=== PATIENT | female | born 1990 | race Asian ===

== ENCOUNTER 2017-10-09 09:36 | Inpatient (IN) | payer OTHER, SELFPAY ==
[2017-10-09] MEDS: LACTATED RINGERS 1,000 ML 500 ML IV (12:00)
--- NOTE | 2017-10-09 13:07 | P.HPOB_ITS ---
OB HPI Date/Time Date of admission: 10/09/17 Date Patient Seen: 10/09/17 Time Patient Seen: 12:55 History of Present Illness Chief complaint: EVALUATION OF LABOR : 1 Para: 0 Estimated Date of Delivery: 10/01/17 Estimated Gestational Age (weeks): 41w 1d Narrative: TED CROOK is a 27 year old female under the care of Dr. Fountain at [facility] but Dr. Fountain unavailable and patient came here for delivery. Patient had began having contractions. While here she had spontaneous rupture of membranes with clear fluid. Patient denies any problems with the . Indications Other reason(s) for admission: Active labor with spontaneous rupture membranes History of Present care: initiated at week # (8wk) Dating criteria: LMP confirmed by 2nd trimester US Ultrasounds: normal mid trimester US Abnormal ultrasound findings: Patient states normal ultrasound although we do not have those records Obstetrical complications: none Medical complications: none Preadmission Labs Blood type: B (+) positive -: Antibody screen: negative, GBS status: negative, HBsAG: negative, HIV: negative and RPR/VDLR: negative -: Chlamydia screen: not detected and Gonorrhea screen: not detected -: Varicella: immune HCAB: negative 1 hr GTT: 140 Meds Generic Name Dose Route Start Last Admin Trade Name Freq PRN Reason Stop Dose Admin Calcium Carbonate 500 mg 10/09/17 12:43 Tums PO Q2HR PRN Dyspepsia Fentanyl 100 mcg 10/09/17 12:43 Sublimaze IV Q1H PRN Severe Pain Lactated Ringer's 1,000 mls @ 100 mls/hr 10/09/17 12:45 Lactated Ringers IV CONT TI Ondansetron HCl 4 mg 10/09/17 12:43 Zofran IV Q4HR PRN Nausea And Vomiting Review of Systems Review of Systems All systems reviewed & are unremarkable except as noted in HPI and below Exam Narrative Exam Narrative: HEENT exam within normal limits. Lungs are clear to auscultation and percussion. No thyromegaly. Heart is regular, rate and rhythm , no S3-S4 or murmurs. Abdomen is gravid, with moderate palpation contractions. Ultrasound confirms vertex fetus. Manual OB Exam: dilated 2, effaced 75% and station -2 Uterus Location (Fundal Height): 37 Presentation: vertex Estimated Weight (lbs): 7 Amniotic Fluid: clear Neuro DTR's: Rt Patellar: 0 and Lt Patellar: 0 Extrem Right lower extremity: normal to inspection Left lower extremity: normal to inspection Assessment and Plan (1) Active labor at term: Current visit: Yes Status: Acute (2) 41 weeks gestation of : Current visit: Yes Status: Acute Forty-one week gestation in active labor with spontaneous rupture med. Fentanyl and epidural when patient requests. Anticipate vaginal delivery.
[2017-10-09 13:29] LABS: Add Manual Diff / Slide Review NO; Basophils Percent Auto 0.4 % (0-2); Eosinophils Percent Auto 0.4 % (2-4); Hematocrit 39.5 % (36-46); Hemoglobin 13.7 g/dL (12.0-16.0); Lymphocytes Percent Auto 8.2 % (25-40); Mean Corpuscular HGB Conc 34.6 % (30-36); Mean Corpuscular Hemoglobin 32.3 PG (26-34); Mean Corpuscular Volume 93.4 fL (80-100); Monocytes Percent Auto 10.5 % (3-14); Neutrophils Absolute Auto 14200 /uL (3000-5900); Neutrophils Percent Auto 80.5 % (50-75); Platelet Count 174 X10^3/uL (150-400); Red Blood Cell Count 4.23 X10^6/uL (4.0-5.2); Red Cell Distribution Width 13.3 % (11.6-14.8); White Blood Cell Count 17.6 X10^3/uL (4.5-11.0)
--- NOTE | 2017-10-09 20:24 | P.PNOB_ITS ---
Date/Time Date Patient Seen: 10/09/17 Time Patient Seen: 20:17 Pain Control Pain control: epidural Pelvic Exam Dilation (cm): 9 Effacement (%): 100 station: 0 Amniotic membrane status: Ruptured Comments: Fore bag ruptured, somewhat malodorous amniotic fluid Contractions Contractions on admission: regular Contraction frequency (min): 3 Contraction duration (min): 1 Contraction pattern: Regular Contraction intensity: Moderate Status status: Category l Heart Rate Baseline: 160 Monitor Accelerations: Present Monitor Decelerations: Absent Monitor Variability: Moderate Assessment and Plan Assessment: active labor Plan: other Comments: Patient with temperature now 100.3, pulse of 130, increased heart rate baseline, malodorous amniotic fluid will treat with Tylenol and Ancef for possible early chorioamnionitis
[2017-10-09 20:35] VITALS: TEMP 37.9
[2017-10-09] MEDS: ACETAMINOPHEN 325 MG TABLET 650 MG PO (20:35)
[2017-10-09] MEDS: CEFAZOLIN 2 GM/100 ML FROZ.PIGGY IV (20:45)
[2017-10-09] MEDS: OXYTOCIN 10 UNIT/ML VIAL IM (23:55)
[2017-10-10 02:27] VITALS: TEMP 37.2
[2017-10-10] MEDS: IBUPROFEN 600 MG TABLET PO ×3 (02:27→23:43)
[2017-10-10 04:14] VITALS: TEMP 37
[2017-10-10] MEDS: HYDROCODONE/ACET 5/325 TABLET 2 TAB PO ×2 (04:14→14:44)
[2017-10-10] MEDS: DERMOPLAST SPRAY 20% 60 ML 1 SPRAY TOP (07:30)
[2017-10-10] MEDS: DOCUSATE 250 MG CAPSULE PO (09:15)
--- NOTE | 2017-10-10 11:50 | P.PNOB_ITS ---
Subjective - OB Patient comments: no complaints and incisional pain baby status: doing well [place] feeding status: exclusively breast feeding Date Patient Seen: 10/10/17 Time Patient Seen: 11:48 Exam Vital Signs (past 8 hours): Vital Signs - 8 hr 3 10/10/17 04:14 Temperature 98.6 F Temperature 98.6 F Narrative Exam Narrative: Patient denies any signs or symptoms of preeclampsia. She is urinating and ambulatory. She has incisional pain but otherwise is doing well. Abdomen is soft, nontender. Uterus is firm, at U, nontender. Extremities with out edema, nontender. Objective Labs Result Diagrams: 10/09/17 12:00 Labs: Laboratory Results - last 24 hr 10/09/17 10/09/17 12:00 12:00 WBC 17.6 H RBC 4.23 Hgb 13.7 Hct 39.5 MCV 93.4 MCH 32.3 MCHC 34.6 RDW 13.3 Plt Count 174 Neut % (Auto) 80.5 H Lymph % (Auto) 8.2 L Rains % (Auto) 10.5 Eos % (Auto) 0.4 L Baso % (Auto) 0.4 Neut # (Auto) 34281 H Blood Type B Positive Antibody Screen Negative Assessment & Plan (1) Active labor at term: Status: Acute Current Visit: Yes (2) 41 weeks gestation of : Status: Acute Current Visit: Yes (3) Vaginal delivery: Problem details: Routine post vaginal delivery care. Probable discharge tomorrow if stable. Status: Acute Current Visit: Yes Time Spent With Patient Total time spent is greater than 50% in coordination of care (as documented) at patient's floor/unit and/or counseling patient: less than 15 minutes
[2017-10-10] MEDS: PRENATAL VIT,CALC/IRON/FOLIC 1 TABLET 1 TAB PO (14:46)
[2017-10-10 23:43] VITALS: TEMP 36.9
[2017-10-11 06:56] LABS: Hematocrit 32.4 % (36-46); Hemoglobin 11.1 g/dL (12.0-16.0)
[2017-10-11] MEDS: IBUPROFEN 600 MG TABLET PO (08:28)
--- NOTE | 2017-10-11 11:03 | PM.OBDS.1 ---
Discharge Providers Date of admission: 10/10/17 15:01 Discharge provider: Janette Bangura MD Summary Date Patient Seen: 10/11/17 Time Patient Seen: 11:04 Peripartum Data Infant Delivery Method: Natural Vaginal Laceration description: Perineal - 2nd Degree Procedures: Epidural catheter, IV antibiotics Discharge Diagnosis (1) Chorioamnionitis, delivered, current hospitalization: Start Date: 10/09/17 Start Time: 21:00 Status: Acute Problem Details: Patient developed a fever and had foul-smelling amniotic fluid with increasing heart rate Status at Discharge Functional status at discharge: independent ambulation Overall status at discharge: patient is back to baseline Time Spent with Patient Total time spent providing and/or coordinating discharge services: Less than 30 minutes Objective Labs Result Diagrams: 10/11/17 06:35 Labs: Laboratory Results - last 24 hr 10/11/17 06:35 Hgb 11.1 L Hct 32.4 L Discharge Plan Discharge Plan Patient Disposition: Home, Self-Care Discharge Med Rec/Prescriptions Prescriptions: New ibuprofen 600 mg Tablet 600 mg PO Q6HR PRN (Reason: As Needed For Fever/Mild Pain) Qty: 30 RF: 0 Continue [id number] fumarate-FA [] 28-800 mg-mcg Tablet 1 % (w/w) PO DAILY RF: 0 Follow up/Referrals: Janette Bangura MD [Physician] - (Four weeks) Provider Discharge Instructions Diet: Diet as Tolerated Activity: Activity as tolerated and Do not place anything in the vagina for 6 weeks Cold/Heat Therapy: Apply ice as needed for comfort Wound Care Report to your healthcare provider any signs of infection, such as:: chills, fever and increased pain Discharge Data Attending Provider: Janette Bangura Admit Date/Time: 10/10/17 15:01
[2017-10-11 11:17] VITALS: BP 107/73; PULSE 91; RESP 16; TEMP 36.8
--- NOTE | 2017-12-25 04:08 | PM.OBPRVD ---
Events: Foul Smelling Amniotic Fluid Delivery date: 10/09/14 Intrapartal events: Febrile and Chorioamnionitis Induction method: none Delivery monitor: external FHT and external uterine Route of delivery: Laceration description: Perineal - 2nd Degree Delivery repair: vicryl Estimated blood loss (mL): 250 Anesthesia type: Epidural Narrative: Patient arrived on Labor and delivery in active labor. She received an epidural for pain control. heart tones remained reassuring throughout labor. She did have possible early signs of chorioamnionitis with fever and foul-smelling amniotic fluid so was given IV antibiotics. She delivered spontaneously over an intact perineum a viable male infant. The infant was placed on maternal abdomen and after the cord stopped pulsating the cord was clamped cut and cord bloods obtained. Patient had a second-degree perineal tear that was repaired with 3 0 chromic in the usual 2 layer fashion. There are no cervical or vaginal tears. The placenta delivered spontaneously intact with 3 vessels. The male infant weighed 8 lb 12 oz, 3969 g with Apgars of 9 and 9. Estimated blood loss 250 cc. Both mother doing well. First stage of labor 15 hr 50 min, 2nd stage of labor 2 hr 29 min, 3rd stage of labor 5 min Baby 1: gender: Male Presentation: vertex Placenta delivery description: Spontaneous cord vessel description: 3 Vessels score (1 min): 9 score (5 min): 9 Plan for aftercare: Routine post care, watch for evidence of infection.
== END 2017-10-11 14:52 | disposition home or self-care (01) | DRG 775 ==
PROVIDERS: Admitting Provider Specialist; Visit Provider Specialist
DX: O41.1230 Chorioamnionitis, third trimester, not applicable or unspecified (principal); Z3A.41 41 weeks gestation of pregnancy; Z37.0 Single live birth; O70.1 Second degree perineal laceration during delivery; O77.0 Labor and delivery complicated by meconium in amniotic fluid; Z34.03 Encounter for supervision of normal first pregnancy, third trimester
CPT/HCPCS: 01967; 36415; 59050; 59409; 85014; 85018; 85025; 86850; 86900; 86901; 99058; 99222; 99238; G0378; G0379; J0690; J2590; J3010

== ENCOUNTER 2018-01-19 16:08 | Emergency (ER) | payer OTHER, SELFPAY ==
[2018-01-19 16:12] VITALS: BP 113/78; PULSE 63; RESP 14; TEMP 36.3; O2SAT 97; BMI 24.4
--- NOTE | 2018-01-19 16:18 | ED_ITS ---
HPI - Dizziness <GERMAN Ram - Last Filed: 01/19/18 21:52> General Chief Complaint: Dizziness Stated Complaint: DIZZY, HEADACHE Time Seen by Provider: 01/19/18 16:17 Source: patient Mode of arrival: ambulatory Limitations: no limitations History of Present Illness HPI Narrative: 19-year-old female here for complaint of having headache for the last couple of days. She reports the headache is to the left side of her head. She also reports that she has had few episodes of dizziness during the same timeframe. She denies any shortness of breath. No chest pain. No fevers or chills. She denies any stressors or relievers of her headache. No nausea or vomiting. She reports that she has had positive p.o. intake and has been drinking fluids well. No abdominal pain. No other concerns or complaints. Related Data Home Medications Medication Instructions Recorded Confirmed PNV cmb#95-ferrous fumarate-FA 1 tab PO QPM 01/19/18 01/19/18 [] norethindrone (contraceptive) 1 tab PO QPM 01/19/18 01/19/18 [Sommer-BE] Allergies Allergy/AdvReac Type Severity Reaction Status Date / Time No Known Drug Allergies Allergy Verified 01/19/18 16:15 Review of Systems <GERMAN Ram - Last Filed: 01/19/18 21:52> Constitutional Denies chills, Denies fever(s), Reports headache(s), Denies lethargy and Denies weakness Eyes Denies change in vision, Denies eye discharge, Denies irritation and Denies loss of vision ENT Ears, Nose, Mouth, and Throat: Denies change in voice, Reports dizziness, Reports headache(s), Denies neck pain and Denies sore throat Cardiovascular Denies chest pain, Denies irregular heart rhythm, Denies lightheadedness, Denies palpitations, Denies dyspnea, Denies dyspnea on exertion and Denies orthopnea Respiratory Denies cough, Denies dyspnea, Denies dyspnea on exertion and Denies wheezing Gastrointestinal Gastrointestinal: Denies abdominal pain, Denies change in bowel habits, Denies diarrhea, Denies nausea and Denies vomiting Genitourinary Denies hematuria, Denies flank pain, Denies urinary incontinence and Denies urinary urgency Musculoskeletal Denies neck pain Integumentary/Breasts Denies pruritus, Denies erythema, Denies rash and Denies wounds Neurologic Denies confusion, Reports dizziness, Reports headache(s), Denies loss of vision and Denies weakness Psychiatric Denies anxiety, Denies confusion, Denies depression, Denies homicidal ideation and Denies suicidal ideation Endocrine Denies palpitations Hematologic/Lymphatic Denies easy bruising Allergic/Immunologic Denies wheezing Exam <GERMAN Ram - Last Filed: 01/19/18 21:52> Initial Vital Signs Initial Vital Signs: Vital Signs Temperature 97.4 F L 01/19/18 16:12 Pulse Rate 63 01/19/18 16:12 Respiratory Rate 14 01/19/18 16:12 Blood Pressure 113/78 01/19/18 16:12 Pulse Oximetry 97 01/19/18 16:12 Const General: cooperative and well developed Nutritional Appearance: well nourished Orientation: alert, awake, oriented x3 and not confused HENDE Mouth: oral mucosae normal, oropharynx normal and moist mucous membranes Eyes Conjunctivae: conjunctivae normal Sclera: sclerae normal Pupils: PERRL EOM: EOM intact bilaterally Resp Effort & Inspection: normal respiratory effort, able to speak in complete sentences, no respiratory distress and no use of accessory muscles Auscultation: clear to auscultation bilaterally, no rales, no rhonchi and no wheezes Cardio Rate: regular rate Rhythm: regular rhythm Heart Sounds: no click, no gallops, no murmurs and no rubs GI Inspection: non-distended Palpation: soft, no hepatosplenomegaly, No guarding, No pulsatile mass and No tender Auscultation: normal bowel sounds Skin General: no rashes or lesions noted, No jaundice and No petechiae Neuro General: alert, awake, oriented x3, gait normal and no focal motor deficits Speech: speech normal <Rosales Oneill DO - Last Filed: 01/20/18 13:09> Initial Vital Signs Initial Vital Signs: Vital Signs Temperature 97.4 F L 01/19/18 16:12 Pulse Rate 63 01/19/18 16:12 Respiratory Rate 14 01/19/18 16:12 Blood Pressure 113/78 01/19/18 16:12 Pulse Oximetry 97 01/19/18 16:12 Course <GERMAN Ram - Last Filed: 01/19/18 21:52> Orders Ordered: Discontinued Medications Diphenhydramine HCl (Benadryl) 25 mg IV NOW ONE Stop: 01/19/18 16:45 Last Admin: 01/19/18 17:23 Dose: 25 mg Sodium Chloride (Normal Saline 0.9%) 1,000 mls @ 1,000 mls/hr IV BOLUS PRN PRN Reason: Fluid replacement Last Infusion: 01/19/18 18:32 Dose: 1,000 mls/hr Admin: 01/19/18 17:25 Dose: 1,000 mls/hr Ketorolac Tromethamine (Toradol) 30 mg IV NOW ONE Stop: 01/19/18 16:45 Last Admin: 01/19/18 17:23 Dose: 30 mg Prochlorperazine (Compazine) 10 mg IV NOW ONE Stop: 01/19/18 16:45 Last Admin: 01/19/18 17:24 Dose: 10 mg Vital Signs - 8 hr 01/19/18 16:12 01/19/18 17:24 01/19/18 17:35 Temperature 97.4 F L Pulse Rate 63 62 61 Respiratory Rate 14 14 Blood Pressure 113/78 109/78 Blood Pressure [Left Arm] 104/80 Pulse Oximetry 97 100 01/19/18 18:41 Temperature Pulse Rate 60 Respiratory Rate 16 Blood Pressure Blood Pressure [Left Arm] 110/70 Pulse Oximetry 100 <Rosales Oneill DO - Last Filed: 01/20/18 13:09> Orders Ordered: Discontinued Medications Diphenhydramine HCl (Benadryl) 25 mg IV NOW ONE Stop: 01/19/18 16:45 Last Admin: 01/19/18 17:23 Dose: 25 mg Sodium Chloride (Normal Saline 0.9%) 1,000 mls @ 1,000 mls/hr IV BOLUS PRN PRN Reason: Fluid replacement Last Infusion: 01/19/18 18:32 Dose: 1,000 mls/hr Admin: 01/19/18 17:25 Dose: 1,000 mls/hr Ketorolac Tromethamine (Toradol) 30 mg IV NOW ONE Stop: 01/19/18 16:45 Last Admin: 01/19/18 17:23 Dose: 30 mg Prochlorperazine (Compazine) 10 mg IV NOW ONE Stop: 01/19/18 16:45 Last Admin: 01/19/18 17:24 Dose: 10 mg Vital Signs - 8 hr 01/19/18 16:12 01/19/18 17:24 01/19/18 17:35 Temperature 97.4 F L Pulse Rate 63 62 61 Respiratory Rate 14 14 Blood Pressure 113/78 109/78 Blood Pressure [Left Arm] 104/80 Pulse Oximetry 97 100 01/19/18 18:41 Temperature Pulse Rate 60 Respiratory Rate 16 Blood Pressure Blood Pressure [Left Arm] 110/70 Pulse Oximetry 100 MDM - Dizziness <GERMAN Ram - Last Filed: 01/19/18 21:52> Lab Data Result diagrams: 01/19/18 17:13 01/19/18 17:13 Lab Results 01/19/18 01/19/18 01/19/18 Range/Units 17:13 17:13 18:00 WBC 5.9 (4.5-11.0) X10^3/uL RBC 4.66 (4.0-5.2) X10^6/uL Hgb 14.5 (12.0-16.0) g/dL Hct 42.2 (36-46) % MCV 90.6 (80-100) fL MCH 31.0 (26-34) PG MCHC 34.2 (30-36) % RDW 12.2 (11.6-14.8) % Plt Count 248 (150-400) X10^3/uL Neut % (Auto) 53.5 (50-75) % Lymph % (Auto) 30.7 (25-40) % [place] % (Auto) 13.0 (3-14) % Eos % (Auto) 2.1 (2-4) % Baso % (Auto) 0.7 (0-2) % Neut # (Auto) 3200 (1406-8208) /uL Sodium 141 (137-145) mmol/L Potassium 3.8 (3.4-5.1) mmol/L Chloride 101 (98-107) mmol/L Carbon Dioxide 28 (22-32) mmol/L BUN 18 H (7-17) mg/dL Creatinine 0.90 (0.52-1.04) mg/dL Estimated GFR > 60.0 (>60) mL/min BUN/Creatinine Ratio 20.0 (6-22) Glucose 83 (70-100) mg/dL Calcium 10.0 (8.4-10.2) mg/dL Total Bilirubin 0.7 (0.2-1.3) mg/dL AST 20 (14-36) IU/L ALT 24 (9-52) IU/L Alkaline Phosphatase 87 (38-126) U/L Troponin I < 0.012 (0.01-0.034) ng/mL Total Protein 8.9 H (6.3-8.2) g/dL Albumin 5.1 H (3.5-5.0) g/dL Globulin 3.8 (1.7-4.1) g/dL Albumin/Globulin Ratio 1.3 (1.0-2.8) Urine RBC None seen (0-5/HPF) Urine WBC 5-10/hpf H (0-5/HPF) Ur Squamous Epith Cells 0-1 /hpf Urine Bacteria None seen (None) Ur Culture Indicated? Specimen cultured Micro UA Comment Not Reportable Imaging Data Chest x-ray: Radiologist's impression: PROCEDURE: XR CHEST 1V INDICATIONS: Headache with dizziness TECHNIQUE: One view of the chest was acquired. COMPARISON: None. FINDINGS: Surgical changes and devices: None. Lungs and pleura: No pleural effusions or pneumothorax. Lungs are clear. Mediastinum: Mediastinal contours appear normal. Heart size is normal. Bones and chest wall: No suspicious bony lesions. Overlying soft tissues appear unremarkable. IMPRESSION: No acute cardiopulmonary findings. Dictated by: Stephanie Gutierrez M.D. on 01/19/2018 at 17:32 Approved by: Stephanie Gutierrez M.D. on 01/19/2018 at 17:33 CT scan - head: Radiologist's impression: PROCEDURE: CT HEAD/BRAIN WO CON INDICATIONS: Headache with dizziness since this morning TECHNIQUE: Noncontrast 4.5 mm thick angled axial sections acquired from the foramen magnum to the vertex, with coronal and sagittal reformats. For radiation dose reduction, the following was used: automated exposure control, adjustment of mA and/or kV according to patient size. COMPARISON: None. FINDINGS: Image quality: Excellent. CSF spaces: Basal cisterns are patent. No extra-axial fluid collections. Ventricles are normal in size and shape. Brain: No midline shift. No intracranial masses or hemorrhage. Garcia-white matter interface is normal. Skull and face: Calvarium and visualized facial bones are intact, without suspicious lesions. Sinuses: Visualized sinuses and mastoids are clear. IMPRESSION: Unremarkable head CT. No acute intracranial hemorrhage or ischemia. Dictated by: Adarsh Sams M.D. on 01/19/2018 at 15:59 Approved by: Adarsh Sams M.D. on 01/19/2018 at 16:00 ECG Data Interpretation: EKG shows normal sinus rhythm with no ST elevation or depression. No ectopy. Ventricular rate of 92. Pr interval 117. QRS duration of 82. QT of 318. MDM Narrative Medical decision making narrative: CBC and Chem panel were obtained were unremarkable. Cardiac enzymes were obtained were negative. CT of the head was obtained was negative for any acute findings. Chest x-ray was negative for any acute findings. EKG shows normal sinus rhythm with no ST elevation or depression. No ectopy. She was given a Benadryl Compazine and Toradol in the emergency room along with fluids which read solved her headache. She states she feels much better after treatment and desires to go home. Urinalysis was negative for . Urinalysis did show WBC however patient is not having any signs of urinary tract infection. [id number] Tylenol or ibuprofen as needed for any discomfort. Follow up with primary care for the next few days for re-evaluation. For any worsening symptoms return emergency room. <Rosales Oneill, - Last Filed: 01/20/18 13:09> Lab Data Lab Results 01/19/18 01/19/18 01/19/18 Range/Units 17:13 17:13 18:00 WBC 5.9 (4.5-11.0) X10^3/uL RBC 4.66 (4.0-5.2) X10^6/uL Hgb 14.5 (12.0-16.0) g/dL Hct 42.2 (36-46) % MCV 90.6 (80-100) fL MCH 31.0 (26-34) PG MCHC 34.2 (30-36) % RDW 12.2 (11.6-14.8) % Plt Count 248 (150-400) X10^3/uL Neut % (Auto) 53.5 (50-75) % Lymph % (Auto) 30.7 (25-40) % [place] % (Auto) 13.0 (3-14) % Eos % (Auto) 2.1 (2-4) % Baso % (Auto) 0.7 (0-2) % Neut # (Auto) 3200 (4535-2918) /uL Sodium 141 (137-145) mmol/L Potassium 3.8 (3.4-5.1) mmol/L Chloride 101 (98-107) mmol/L Carbon Dioxide 28 (22-32) mmol/L BUN 18 H (7-17) mg/dL Creatinine 0.90 (0.52-1.04) mg/dL Estimated GFR > 60.0 (>60) mL/min BUN/Creatinine Ratio 20.0 (6-22) Glucose 83 (70-100) mg/dL Calcium 10.0 (8.4-10.2) mg/dL Total Bilirubin 0.7 (0.2-1.3) mg/dL AST 20 (14-36) IU/L ALT 24 (9-52) IU/L Alkaline Phosphatase 87 (38-126) U/L Troponin I < 0.012 (0.01-0.034) ng/mL Total Protein 8.9 H (6.3-8.2) g/dL Albumin 5.1 H (3.5-5.0) g/dL Globulin 3.8 (1.7-4.1) g/dL Albumin/Globulin Ratio 1.3 (1.0-2.8) Urine RBC None seen (0-5/HPF) Urine WBC 5-10/hpf H (0-5/HPF) Ur Squamous Epith Cells 0-1 /hpf Urine Bacteria None seen (None) Ur Culture Indicated? Specimen cultured Micro UA Comment Not Reportable Discharge Plan Departure Patient Disposition: Home Clinical Impression: Headache Discharge Date/Time: 01/19/18 18:50 Interventions: ED Discharge Assessment Last Done: 01/19/18 18:50 Instructions: DI for Headache Activity Restrictions/Additional Instructions: Laboratory results today were unremarkable. Imaging today was also unremarkable. Signs and symptoms presents as acute headache that was resolved with medications and fluids. Use [id number] Tylenol Motrin as needed for any discomfort. Plenty of fluids. Follow up via primary care per the next few days for re-evaluation. For any worsening symptoms return emergency room. Prescriptions: No Action norethindrone (contraceptive) [Sommer-BE] 0.35 mg tablet 1 tab PO QPM RF: 0 PNV cmb#95-ferrous fumarate-FA [] 28 mg iron- 800 mcg tablet 1 tab PO QPM RF: 0 Referrals: [facility] [Provider Group] <Rosales Oneill DO - Last Filed: 01/20/18 13:09> Cosign ED Attending Donnaature Attestation: I was immediately available in the department for consultation. Documentation has been reviewed. I agree with assessment and plan.
--- NOTE | 2018-01-19 16:44 | DI.RAD.S_ITS ---
PROCEDURE: XR CHEST 1V INDICATIONS: Headache with dizziness TECHNIQUE: One view of the chest was acquired. COMPARISON: None. FINDINGS: Surgical changes and devices: None. Lungs and pleura: No pleural effusions or pneumothorax. Lungs are clear. Mediastinum: Mediastinal contours appear normal. Heart size is normal. Bones and chest wall: No suspicious bony lesions. Overlying soft tissues appear unremarkable. IMPRESSION: No acute cardiopulmonary findings. Dictated by: Stephanie Gutierrez M.D. on 01/19/2018 at 17:32 Approved by: Stephanie Gutierrez M.D. on 01/19/2018 at 17:33
--- NOTE | 2018-01-19 16:45 | DI.CT.S_ITS ---
PROCEDURE: CT HEAD/BRAIN WO CON INDICATIONS: Headache with dizziness since this morning TECHNIQUE: Noncontrast 4.5 mm thick angled axial sections acquired from the foramen magnum to the vertex, with coronal and sagittal reformats. For radiation dose reduction, the following was used: automated exposure control, adjustment of mA and/or kV according to patient size. COMPARISON: None. FINDINGS: Image quality: Excellent. CSF spaces: Basal cisterns are patent. No extra-axial fluid collections. Ventricles are normal in size and shape. Brain: No midline shift. No intracranial masses or hemorrhage. Garcia-white matter interface is normal. Skull and face: Calvarium and visualized facial bones are intact, without suspicious lesions. Sinuses: Visualized sinuses and mastoids are clear. IMPRESSION: Unremarkable head CT. No acute intracranial hemorrhage or ischemia. Dictated by: Adarsh Sams M.D. on 01/19/2018 at 15:59 Approved by: Adarsh Sams M.D. on 01/19/2018 at 16:00
[2018-01-19 17:21] LABS: Add Manual Diff / Slide Review NO; Basophils Percent Auto 0.7 % (0-2); Eosinophils Percent Auto 2.1 % (2-4); Hematocrit 42.2 % (36-46); Hemoglobin 14.5 g/dL (12.0-16.0); Lymphocytes Percent Auto 30.7 % (25-40); Mean Corpuscular HGB Conc 34.2 % (30-36); Mean Corpuscular Volume 90.6 fL (80-100); Neutrophils Absolute Auto 3200 /uL (3000-5900); Neutrophils Percent Auto 53.5 % (50-75); Platelet Count 248 X10^3/uL (150-400); Red Blood Cell Count 4.66 X10^6/uL (4.0-5.2); Red Cell Distribution Width 12.2 % (11.6-14.8); White Blood Cell Count 5.9 X10^3/uL (4.5-11.0)
[2018-01-19] MEDS: diphenhydrAMINE 50 MG/ML VIAL 25 MG IV (17:23)
[2018-01-19] MEDS: KETOROLAC 60 MG/2 ML VIAL 30 MG IV (17:23)
[2018-01-19 17:24] VITALS: BP 109/78; PULSE 62
[2018-01-19] MEDS: PROCHLORPERAZINE 10 MG/2 ML VIAL IV (17:24)
[2018-01-19] MEDS: SODIUM CHLORIDE 0.9% 1,000 ML 1000 ML IV (17:25)
[2018-01-19 17:35] VITALS: BP 104/80; PULSE 61; RESP 14; O2SAT 100
[2018-01-19 17:37] LABS: Alanine Aminotransferase 24 IU/L (9-52); Albumin 5.1 g/dL (3.5-5.0); Albumin Globulin Ratio 1.3 (1.0-2.8); Alkaline Phosphatase 87 U/L (38-126); Aspartate Aminotransferase 20 IU/L (14-36); Bilirubin Total 0.7 mg/dL (0.2-1.3); Blood Urea Nitrogen 18 mg/dL (7-17); Carbon Dioxide 28 mmol/L (22-32); Chloride 101 mmol/L (98-107); Estimated Glomerular Filt Rate > 60.0 mL/min (>60); Globulin 3.8 g/dL (1.7-4.1); Glucose 83 mg/dL (70-100); HEMOLYSIS < 15 (0-50); Potassium 3.8 mmol/L (3.4-5.1); Sodium 141 mmol/L (137-145); Total Protein 8.9 g/dL (6.3-8.2)
[2018-01-19 17:50] LABS: Troponin I < 0.012 ng/mL (0.01-0.034)
[2018-01-19 18:19] LABS: Bacteria Urine None Seen; RBC Urine None Seen (0-5/HPF)
[2018-01-19 18:29] LABS: Culture Indicated Urine Specimen Cultured; Squamous Epithelial Cell Urine 0-1 /HPF; WBC Urine 5-10/HPF (0-5/HPF)
[2018-01-19 18:41] VITALS: BP 110/70; PULSE 60; RESP 16; O2SAT 100
== END 2018-01-19 18:50 | disposition home or self-care (01) ==
PROVIDERS: Emergency Provider Nurse Practitioner Family
DX: R51 Headache (principal)
CPT/HCPCS: 70450; 71045; 80053; 81003; 81015; 81025; 84484; 85025; 87086; 93005; 93010; 96361; 96374; 96375; 99283; 99285; J0780; J1200; J1885

== ENCOUNTER → 2021-01-14 12:05 | Outpatient (CLI) | payer OTHER, SELFPAY ==
[2021-01-14 12:39] LABS: Add Manual Diff / Slide Review NO; Basophils Absolute Auto 0 /uL (0-100); Basophils Percent Auto 0.3 % (0-2); Eosinophils Absolute Auto 0 /uL (0-450); Eosinophils Percent Auto 0.6 % (2-4); Hematocrit 37.9 % (36-46); Hemoglobin 12.9 g/dL (12.0-16.0); Lymphocytes Absolute Auto 1200 /uL (1100-4500); Lymphocytes Percent Auto 15.1 % (25-40); Mean Corpuscular HGB Conc 34.1 % (30-36); Mean Corpuscular Hemoglobin 31.5 PG (26-34); Mean Corpuscular Volume 92.5 fL (80-100); Monocytes Absolute Auto 600 /uL (0-900); Neutrophils Absolute Auto 6000 /uL (1500-7000); Platelet Count 234 X10^3/uL (150-400); Red Cell Distribution Width 12.9 % (11.6-14.8); White Blood Cell Count 7.9 X10^3/uL (4.5-11.0)
[2021-01-14 13:13] LABS: Appearance Urine UA SL CLOUDY; Bilirubin Urine UA NEGATIVE (NEGATIVE); Color Urine UA YELLOW; Glucose Urine UA NEGATIVE (Negative); Ketones Urine UA NEGATIVE (NEGATIVE); Leukocyte Esterase Urine UA 2+ (NEGATIVE); Nitrite Urine UA NEGATIVE (Negative); Occult Blood Urine UA NEGATIVE (Negative); Protein Urine UA NEGATIVE (Negative); Specific Gravity Urine UA 1.015 (1.000-1.035); Urobilinogen Urine UA 0.2 E.U./dL (0.2)
[2021-01-14 13:16] LABS: pH Urine UA 7.5 (4.5-8.0)
[2021-01-14 13:17] LABS: RBC Urine None Seen (0-5/HPF)
[2021-01-14 13:27] LABS: Amorphous Sediment Urine 1+; Bacteria Urine Many (>30); Squamous Epithelial Cell Urine 1-5 /HPF (0-5/HPF); WBC Urine 5-10/HPF (0-5/HPF)
[2021-01-14 13:41] LABS: HIV 1 & 2 Ab/Ag 4th Gen Combo NEGATIVE (NEGATIVE); Hep C Virus Ab w/Reflex Quant NEGATIVE s/c (NEGATIVE); Hepatitis B Surface Antigen NEGATIVE s/c (NEGATIVE); Rubella Antibody IgG 25.8 IU/mL (>15)
[2021-01-15 06:10] LABS: RPR Screen Non Reactive (Non Reactive)
[2021-01-15 07:35] LABS: Varicella IgG Antibody 3944 index (Immune >165)
== END ==
PROVIDERS: Referring Provider Family Medicine; Visit Provider Family Medicine
DX: Z34.81 Encounter for supervision of other normal pregnancy, first trimester (principal)
CPT/HCPCS: 36415; 80055; 81003; 81015; 86787; 86803; 86850; 86900; 86901; 87086; 87389

== ENCOUNTER → 2021-02-11 11:58 | Outpatient (CLI) | payer OTHER, SELFPAY ==
[2021-02-11 13:39] LABS: Thyroid Stimulating Hormone 1.21 uIU/mL (0.47-4.68)
[2021-02-13 19:36] LABS: AFP, Serum 36.3 ng/mL (.); Calc Gestational Age EDD (.); Estriol, Free 1.27 ng/mL (.); Inhibin A, MoM 1.39 (.); Maternal Ethnicity Other (.); Maternal Weight 154 lbs (.); Number of Fetuses No (.); OSBR Risk 1 IN 10000 (.); Results Report (.); Test Results *Screen Negative* (.); hCG, MoM 0.96 (.); hCG, Serum 35617 mIU/mL (.)
== END ==
PROVIDERS: PCP Family Medicine; Referring Provider Family Medicine; Visit Provider Family Medicine
DX: Z34.90 Encounter for supervision of normal pregnancy, unspecified, unspecified trimester (principal); R53.83 Other fatigue
CPT/HCPCS: 36415; 82105; 82677; 84443; 84702; 86336

== ENCOUNTER → 2021-03-18 12:29 | Outpatient (CLI) | payer OTHER, SELFPAY ==
--- NOTE | 2021-03-18 12:30 | DI.US.S_ITS ---
PROCEDURE: US OB >= 14 WEEKS FETUS INDICATIONS: ANATOMY OUTSIDE/PRIOR DATING DATA: Last menstrual period (LMP): October 20, 2020 LMP-based estimated date of delivery (ADAN): July 27, 2021 . First dating scan (date and location): March 18, 2021; [facility] . Estimated date of delivery (ADAN) from first dating scan: July 25, 2021 . TECHNIQUE: Real-time scanning was performed of the fetus, with image documentation and biometric measurements. COMPARISON: None. FINDINGS: General: A single living intrauterine gestation is present. Presentation: Vertex. Placenta: Placental position is posterior without previa. Amniotic fluid index: 12.6 cm, normal range is 5-24 cm. heart rate: 149 beats per minute. Maternal cervical canal: 4.3 cm long. Normal lower limit is 2.5 cm. biometrics: Biparietal diameter: 5.3 cm Head circumference: 19.6 cm Abdominal circumference: 16.1 cm Femur length: 3.5 cm Estimated gestational age from initial scan: not applicable. Composite gestational age from present scan: 21 weeks, 4 days Estimated weight and percentile: 411 g +/-61 g; 43 percentile Measurement variability for biometric dating: +/- 7 days from 14 weeks to 15 weeks 6 days gestation, +/- 10 days from 16 weeks to 21 weeks 6 days gestation, +/- 2 weeks from 22 weeks to 27 weeks 6 days gestation, +/- 3 weeks for 28 weeks gestation or later. weight reference: 4500 g or EFW >90/95% is considered macrosomia or large for gestational age. EFW <10% is small for gestational age. EFW 5% or less is considered intra-uterine growth restriction. Anatomic survey: Neuro: Ventricles are non-dilated at less than 10 mm. Cisterna magna is normal at 3-11 mm. Cerebellum is normal in size and morphology. Nuchal skin fold: Normal at less than 6 mm between 14-21 weeks gestational age. Face: Nose and lips, facial profile are normal. Spine: No evidence for spina bifida. Heart: 4-chambered heart is present, with normal ventricular outflow tracts. Echogenic intracardiac focus is seen in the left ventricular outflow tract. Diaphragm: Diaphragm is intact. Stomach: Left-sided stomach is present. Kidneys: No hydronephrosis. Normal is less than 5 mm in 2nd trimester, less than 7 mm in 3rd trimester. Cord: 3-vessel cord has superior margin insertion. Bladder: Normal in size. Extremities: All 4 extremities identified. IMPRESSION: 1. Superior marginal placental cord insertion. 2. Echogenic intracardiac focus in the left ventricular outflow tract. 3. Single live intrauterine as detailed above. Dictated by: Ambrocio Adame M.D. on 03/18/2021 at 15:01 Approved by: Ambrocio Adame M.D. on 03/18/2021 at 15:16
== END ==
PROVIDERS: PCP Family Medicine; Referring Provider Family Medicine; Visit Provider Family Medicine
DX: Z34.92 Encounter for supervision of normal pregnancy, unspecified, second trimester (principal); Z3A.21 21 weeks gestation of pregnancy
CPT/HCPCS: 76811

== ENCOUNTER → 2021-04-15 14:10 | Outpatient (CLI) | payer OTHER, SELFPAY ==
--- NOTE | 2021-04-15 14:11 | DI.US.S_ITS ---
PROCEDURE: US OB FOLLOW UP INDICATIONS: for marginal insertion and EIF OUTSIDE/PRIOR DATING DATA: Last menstrual period (LMP): 10/20/2020 . LMP-based estimated date of delivery (ADAN): 07/27/2021. First dating scan (date and location): 03/18/2021. Estimated date of delivery (ADAN) from first dating scan: 07/25/2021. TECHNIQUE: Real-time scanning was performed of the fetus, with image documentation. Endovaginal scanning: Not performed. COMPARISON: [facility], OB >= 14 WEEKS FETUS, 03/18/2021, 12:58. FINDINGS: A single living intrauterine gestation is present. Presentation: Cephalic. Placenta: Placental position is posterior, without previa. The umbilical cord inserts approximately 0.9 centimeters from the superior placental edge. Amniotic fluid index: 15.5 cm, normal range is 5-24 cm. heart rate: 136 beats per minute. Maternal cervical canal: 4.1 cm long. Unchanged echogenic intracardiac focus. IMPRESSION: Unchanged echogenic intracardiac focus in the left ventricular outflow tract. Superior marginal placental cord insertion is also redemonstrated. Dictated by: Alfredo Royal M.D. on 04/15/2021 at 16:50 Approved by: Alfredo Royal M.D. on 04/15/2021 at 17:26
== END ==
PROVIDERS: PCP Family Medicine; Referring Provider Family Medicine; Visit Provider Family Medicine
DX: O43.199 Other malformation of placenta, unspecified trimester (principal)
CPT/HCPCS: 76816

== ENCOUNTER → 2021-05-09 10:42 | Outpatient (CLI) | payer OTHER, SELFPAY ==
[2021-05-09 12:43] LABS: Add Manual Diff / Slide Review NO; Basophils Absolute Auto 0 /uL (0-100); Basophils Percent Auto 0.3 % (0-2); Eosinophils Absolute Auto 100 /uL (0-450); Eosinophils Percent Auto 0.7 % (2-4); Hematocrit 35.6 % (36-46); Hemoglobin 12.2 g/dL (12.0-16.0); Lymphocytes Absolute Auto 1400 /uL (1100-4500); Lymphocytes Percent Auto 13.3 % (25-40); Mean Corpuscular HGB Conc 34.3 % (30-36); Mean Corpuscular Hemoglobin 32.6 PG (26-34); Mean Corpuscular Volume 95.1 fL (80-100); Monocytes Absolute Auto 1000 /uL (0-900); Neutrophils Absolute Auto 7800 /uL (1500-7000); Neutrophils Percent Auto 75.7 % (50-75); Platelet Count 215 X10^3/uL (150-400); Red Blood Cell Count 3.74 X10^6/uL (4.0-5.2); Red Cell Distribution Width 13.6 % (11.6-14.8); White Blood Cell Count 10.3 X10^3/uL (4.5-11.0)
[2021-05-09 13:05] LABS: GTT (PREG) 1 Hour PP 50gm Dose 79 mg/dL (76-139)
== END ==
PROVIDERS: PCP Family Medicine; Referring Provider Family Medicine; Visit Provider Family Medicine
DX: Z34.90 Encounter for supervision of normal pregnancy, unspecified, unspecified trimester (principal)
CPT/HCPCS: 36415; 82950; 85025

== ENCOUNTER → 2021-06-03 14:54 | Outpatient (CLI) | payer OTHER, SELFPAY ==
[2021-06-03 15:57] LABS: COVID19 -Nasal RAPID Negative (Negative)
== END ==
PROVIDERS: PCP Family Medicine; Visit Provider Family Medicine
DX: J02.9 Acute pharyngitis, unspecified (principal); R09.89 Other specified symptoms and signs involving the circulatory and respiratory systems
CPT/HCPCS: 87635

== ENCOUNTER → 2021-06-18 14:28 | Outpatient (CLI) | payer OTHER, SELFPAY ==
[2021-06-18 16:07] LABS: COVID19 -Nasal RAPID POSITIVE (Negative)
== END ==
PROVIDERS: PCP Family Medicine; Referring Provider Family Medicine; Visit Provider Family Medicine
DX: U07.1 COVID-19 (principal); J02.9 Acute pharyngitis, unspecified; R09.89 Other specified symptoms and signs involving the circulatory and respiratory systems; R50.9 Fever, unspecified; R52 Pain, unspecified; Z20.822 Contact with and (suspected) exposure to COVID-19
CPT/HCPCS: 87635

== ENCOUNTER → 2021-06-25 11:33 | Outpatient (CLI) | payer OTHER, SELFPAY ==
[2021-06-26 13:21] LABS: Strep Grp B PCR NEG for Grp B Strep
== END ==
PROVIDERS: PCP Family Medicine; Referring Provider Family Medicine; Visit Provider Family Medicine
DX: Z34.93 Encounter for supervision of normal pregnancy, unspecified, third trimester (principal); Z3A.35 35 weeks gestation of pregnancy
CPT/HCPCS: 87653

== ENCOUNTER 2021-07-30 06:41 | Inpatient (IN) | payer OTHER, SELFPAY ==
[2021-07-30 08:27] LABS: Add Manual Diff / Slide Review NO; Basophils Absolute Auto 0 /uL (0-100); Basophils Percent Auto 0.4 % (0-2); Eosinophils Absolute Auto 100 /uL (0-450); Hematocrit 39.5 % (36-46); Hemoglobin 13.1 g/dL (12.0-16.0); Lymphocytes Absolute Auto 1700 /uL (1100-4500); Lymphocytes Percent Auto 13.6 % (25-40); Mean Corpuscular HGB Conc 33.2 % (30-36); Mean Corpuscular Hemoglobin 30.7 PG (26-34); Mean Corpuscular Volume 92.5 fL (80-100); Monocytes Absolute Auto 1400 /uL (0-900); Monocytes Percent Auto 11.1 % (3-14); Neutrophils Absolute Auto 9000 /uL (1500-7000); Neutrophils Percent Auto 73.9 % (50-75); Platelet Count 231 X10^3/uL (150-400); Red Blood Cell Count 4.28 X10^6/uL (4.0-5.2); Red Cell Distribution Width 13.5 % (11.6-14.8); White Blood Cell Count 12.2 X10^3/uL (4.5-11.0)
--- NOTE | 2021-07-30 08:36 | P.HPOB_ITS ---
OB HPI Date/Time Date of admission: 07/30/21 Date Patient Seen: 07/30/21 Time Patient Seen: 07:45 History of Present Condition Chief complaint: CONTRACTIONS ADAN Calculator Estimated Delivery Date Method Current WG Current Estimate 07/27/21 Manual 40w 3d Final ADAN - [place] Other Estimates 07/27/21 LMP (Certain) 40w 3d 07/29/21 Ultrasound #1 40w 1d Estimated Gestational Age (weeks): 40w3d : 2 Para: 1 Narrative: Pt is a 30yo at 40w3d who presented with regular painful contractions. Pt reports contractions starting around 5:30am. They have been increasing in intensity and frequency since then. She denies any vaginal bleeding or LOF. She is feeling her baby move regularly. The pts was uncomplicated other than EIF seen on anatomy scan that was not confirmed with MFM. care: good care, initiated at week # (8) and pounds weight gain (50) Dating criteria OB: LMP confirmed by 1st trimester US Ultrasounds: normal 1st trimester US and normal mid trimester US Obstetrical complications: none Medical complications OB: none Preadmission Labs Last OB Lab Results: Blood Type B Positive 07/30/21 07:30 07/30/21 Antibody Screen Negative 07/30/21 07:30 07/30/21 Hematocrit 39.5 % (36-46) 07/30/21 07:30 07/30/21 Hemoglobin 13.1 g/dL (12.0-16.0) 07/30/21 07:30 07/30/21 Hepatitis B Surface Antigen Negative s/c (NEGATIVE) 01/14/21 12:09 01/14/21 Hepatitis C Antibody Negative s/c (NEGATIVE) 01/14/21 12:09 01/14/21 Rubella Antibody 25.8 IU/mL (>15) 01/14/21 12:09 01/14/21 Varicella-Zoster IgG Antibody 3944 index (Immune >165) 01/14/21 12:09 01/14/21 Glucose 1 Hour 79 mg/dL (76-139) 05/09/21 12:09 05/09/21 Group B Streptococcus (PCR) Neg for grp b strep 06/25/21 11:33 06/25/21 -: Urine: negative Genetic Screens: Quad screen: Normal External Labs -: Urine: negative Prior (ies) Past Pregnancies Del. Date GA/Weeks Labor Lgth Wt Sex Route Outcome Anesthesia Place Delv Breastfeed Preg Comp Name 10/09/17 41.1 18 8 lb 12 oz Male vaginal live - full te rm epidural IH Dr Bangura 12 months chorioamnionitis/endometr Ariel Delivery Date: 10/09/17 Last Updated by: Nimisha Espinoza R.N. *Fever; Chorioamnionitis. *2nd Degree Tear with Repair. *250 EBL. Evaluation Evaluation Baseline heart rate: 120 Variability: Moderate (11-25) monitor accelerations: Present Monitor Decelerations: Absent Contraction Frequency (minutes): 4 Uterine Contraction Intensity: Strong/Firm Status: Category l Dilation (cm): 5 Effacement (%): 80 station: -1 [facility] Medical History (Updated 12/17/20 @ 17:14 by Lilia Cohen MD) No significant past medical history (spontaneous vaginal delivery) (~10/09/17) Surgical History (Updated 12/16/20 @ 15:18 by Nimisha Espinoza RN) [place] teeth extracted Family History (Updated 12/16/20 @ 15:17 by Nimisha Espinoza RN) Father No problems noted. Mother No problems noted. Grandfather No problems noted. Grandmother Liver disease Grandfather Hypertension Diabetes mellitus Grandmother No problems noted. Brother No problems noted. Sister No problems noted. 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 ) current occupational exposures/hazards: Yes special kaitlin needs: No Smoking Status: Never smoker second hand exposure: No alcohol intake: never substance use type: does not use Meds Home Medications and Allergies Home Medications Medication Instructions Recorded Confirmed Type prenat.vits,amy,rrf-gddo-ralph 1 tab PO DAILY 12/11/20 07/04/21 History breast pump #1 ea 05/09/21 07/04/21 Rx Allergies Allergy/AdvReac Type Severity Reaction Status Date / Time No Known Drug Allergies Allergy Verified 07/04/21 10:58 OB Exam Narrative Exam Narrative: Gen: NAD, sitting comfortably in bed, appears well CV: RRR, no murmurs Resp: clear to auscultation bilaterally Abd: soft, nontender, gravid Ext: no edema Objective Labs Result Diagrams: 07/30/21 07:30 Labs: Laboratory Results - last 24 hr 07/30/21 07:30 WBC 12.2 H RBC 4.28 Hgb 13.1 Hct 39.5 MCV 92.5 MCH 30.7 MCHC 33.2 RDW 13.5 Plt Count 231 Neut % (Auto) 73.9 Lymph % (Auto) 13.6 L Bay % (Auto) 11.1 Eos % (Auto) 1.0 L Baso % (Auto) 0.4 Neut # (Auto) 9000 H Lymph # (Auto) 1700 Bay # (Auto) 1400 H Eos # (Auto) 100 Baso # (Auto) 0 Assessment and Plan Assessment and Plan Assessment and Plan narrative: 30yo at 40w3d who presented in active labor. GBS negative, Rh positive. Uncomplicated . - Expectant management, anticipate - FHT reassuring - GBS negative, no prophylaxis indicated - Epidural for pain control now
[2021-07-30 08:42] VITALS: BP 121/63
[2021-07-30 08:52] LABS: COVID19 -Nasal RAPID Negative (Negative)
[2021-07-30] MEDS: LACTATED RINGERS 1,000 ML 100 ML IV ×2 (09:40→10:53)
--- NOTE | 2021-07-30 16:48 | PM.OBPNLAB ---
Date/Time Date Patient Seen: 07/30/21 Time Patient Seen: 12:45 Pain Control Pain control: tolerating well and epidural Pelvic Exam Dilation (cm): 7 Effacement (%): 100 station: 0 Comments: After informed consent, AROM performed with production of meconium-stained fluid. Contractions Contraction frequency (min): 3 Contraction pattern: Regular Status status: Category l Heart Rate Baseline: 120 Monitor Accelerations: Present Monitor Decelerations: Absent Monitor Variability: Moderate Assessment and Plan Comments: 30yo at 40w3d who presented in active labor. GBS negative, Rh positive. Uncomplicated . Due to limited progress, AROM performed with production meconium-stained fluid. - Expectant management, anticipate - FHT reassuring - GBS negative, no prophylaxis indicated - Epidural for pain control in place
--- NOTE | 2021-07-30 16:49 | PM.OBPRVD ---
Labor & Delivery Delivery date: 07/30/21 Intrapartal Events: None Cervical ripening method: none Induction method: none Delivery augmentation: rupture of membranes Delivery monitor: external FHT Route of delivery: Episiotomy description: None L&D Laceration Description: Perineal - 1st Degree Delivery repair: chromic Estimated blood loss (mL): 300 Anesthesia Type: Epidural Complications: None Narrative: PROCEDURE: at 40w3d presented in active labor and was admitted to Labor and Delivery. The patient progressed through the 1st stage over 2 hours. Pain was controlled with an epidural. AROM was performed with production of meconium-stained fluid. The patient progressed through the 2nd stage over 1.5 hours and delivered a viable female with APGARs 9/9 at 16:12 via without complications. The baby cried spontaneous immediately after delivery. The cord was cut and clamped after it stopped pulsating. The perineum and vagina were inspected with 1st decree perineal laceration repaired with 2-O Chromic. PREPROCEDURE DIAGNOSIS: Intrauterine at 40w3d GBS negative RH positive POSTPROCEDURE DIAGNOSIS: Intrauterine at 40w3d, delivered Same as preprocedure Meconium-stained amniotic fluid Baby 1: gender: Female Presentation: vertex Position: Left Occiput Anterior Placenta delivery description: Spontaneous Cord Vessel Description: 3 Vessels score (1 min): 9 score (5 min): 9 weight: 8 lb 11.4 oz Plan for aftercare: Routine care
[2021-07-30] MEDS: IBUPROFEN 600 MG TABLET PO (18:49)
[2021-07-31] MEDS: IBUPROFEN 600 MG TABLET PO ×2 (00:46→06:42)
[2021-07-31] MEDS: DOCUSATE 100 MG CAPSULE PO (08:58)
[2021-07-31] MEDS: PRENATAL VIT,CALC/IRON/FOLIC 1 TABLET 1 TAB PO (08:58)
--- NOTE | 2021-07-31 10:38 | PM.OBDS.1 ---
Discharge Providers Provider Date of admission: 07/30/21 06:41 Discharge Date: 07/31/21 Primary care physician: Lilia Cohen MD Consults: 07/30/21 09:36 Consult to Anesthesiology Urgent Comment: Consulting Provider: Frances Lockhart Reason for consultation: epidural Has provider been notified: Yes 07/31/21 16:46 Consult to Tacking Machine Operator Routine Comment: Discharge provider: Lilia Cohen MD Summary Hospital Course Date Patient Seen: 07/31/21 Time Patient Seen: 10:10 Diagnoses: 40w3d gestation GBS negative Rh positive Hospital Course: The pt presented in active labor. She received an epidural for pain control. AROM was performed with production of meconium-stained fluid. She progressed to complete and had an of a viable baby girl on 07/30/21. A first degree perineal laceration was then repaired. , there were no complications. At the time of discharge she was voiding, ambulating, and passing flatus without difficult. Her pain was well controlled. She was with good latch. Her lochia was decreasing appropriately. She will f/u for her 6wk check. She is undecided regarding contraception. Peripartum Data Infant Delivery Method: Natural Vaginal Laceration Description: Perineal - 1st Degree Episiotomy description: None Procedures: Spontaneous vaginal delivery complications: none 1: Gender: Female Disposition of : home Discharge Diagnosis (1) Spontaneous vaginal delivery: Status: Acute Time Spent with Patient Time attestation: Total time spent providing and/or coordinating discharge services: Objective Labs Result Diagrams: 07/30/21 07:30 Exam Narrative Exam Narrative: Gen: NAD, sitting comfortably in bed, appears well CV: RRR, no murmurs Resp: clear to auscultation bilaterally Abd: soft, appropriately tender, fundus firm and below the umbilicus, nondistended Ext: no edema Discharge Plan Discharge Plan Patient Disposition: Home Discharge orders & Medications Prescriptions: New acetaminophen 325 mg Tablet 650 mg PO Q6HR PRN (Reason: Pain, Mild (1-3)) Qty: 30 0RF docusate sodium 100 mg Capsule 100 mg PO DAILY Qty: 30 0RF ibuprofen 600 mg Tablet 600 mg PO Q6HR PRN (Reason: Pain, Mild (1-3)) Qty: 30 0RF Continued (DME) breast pump Device See Rx Instructions .ROUTE .MEDSUPPLY Qty: 1 0RF Rx Instructions: As directed prenat.vits,amy,tov-dols-gsngb Tablet 1 tab PO DAILY 0RF Follow up/Referrals: Lilia Cohen MD [Primary Care Provider] - 6 Weeks (The office will make your appointment for 6 weeks when mejiae's appointment) Diet/Activity/Treatments Diet: Diet as Tolerated and Regular Skin/Wound/Dressing Care Report to your healthcare provider any signs of infection, such as:: chills, fever, increased pain and unusual drainage Visit Report/Discharge Packet Instructions: DI for Labor and Delivery, Vaginal Visit Report Forms: Patient Portal/API, Stroke Signs & Symptoms Discharge Data Primary Care Provider: Lilia Cohen Discharges patient from system. Discharge Date/Time: 07/31/21 12:30
[2021-07-31 11:06] VITALS: BP 106/70; PULSE 78; RESP 16; TEMP 37.1
== END 2021-07-31 12:30 | disposition home or self-care (01) | DRG 807 ==
PROVIDERS: Admitting Provider Obstetrics & Gynecology; PCP Family Medicine; Referring Provider Obstetrics & Gynecology; Visit Provider Obstetrics & Gynecology
DX: O77.0 Labor and delivery complicated by meconium in amniotic fluid (principal); Z37.0 Single live birth; Z3A.40 40 weeks gestation of pregnancy; O70.0 First degree perineal laceration during delivery
CPT/HCPCS: 01967; 36415; 59050; 59400; 85025; 86850; 86900; 86901; 87635; C9803; G0379; J3010

== ENCOUNTER 2022-10-02 15:38 | Emergency (ER) | payer OTHER, SELFPAY ==
[2022-10-02 16:05] VITALS: BP 122/78; PULSE 90; RESP 17; TEMP 37.2; O2SAT 100; BMI 21.6
[2022-10-02 18:13] VITALS: BP 111/65; PULSE 83; RESP 18; O2SAT 99
--- NOTE | 2022-10-02 22:13 | ED.PSYCH ---
HPI - Psych General Chief Complaint: Psychiatric Symptoms Stated Complaint: SI Time Seen by Provider: 10/02/22 16:08 Source: patient and EMS Mode of arrival: EMS History of Present Illness HPI Narrative: Patient 32-year-old female history of hypothyroid depression presents today with self. She reports that she is been in [place] with baby and for the last 3 months. They came back home she had an argument with her family today she was very upset and hurt herself in the face she has a scratch on her chin. She did call and talk with PCP they were worried for suicidal ideations sent her to the ED for further evaluation. Patient is tired small child at home who does not sleep through the night she is jet lagged and other situations. She feels supported at home she feels safe at home there are no guns at home. She has no prior mental health hospitalizations. This time she would prefer to go home. Related Data Home Medications Medication Instructions Recorded Confirmed prenat.vits,amy,dim-mrha-rynec 1 tab PO DAILY 12/11/20 07/30/21 Previous Rx's Medication Instructions Recorded breast pump #1 ea 05/09/21 acetaminophen 325 mg tablet 650 mg PO Q6HR PRN Pain, Mild 07/31/21 (1-3) #30 tabs docusate sodium 100 mg capsule 100 mg PO DAILY #30 caps 07/31/21 ibuprofen 600 mg tablet 600 mg PO Q6HR PRN Pain, Mild 07/31/21 (1-3) #30 tabs norethindrone (contraceptive) 0.35 0.35 mg PO DAILY #28 tabs 09/22/21 mg tablet (Ortho Micronor) Allergies Allergy/AdvReac Type Severity Reaction Status Date / Time No Known Drug Allergies Allergy Verified 07/04/21 10:58 Review of Systems Review of Systems ROS Unobtainable: All systems reviewed & are unremarkable except as noted in HPI and below Patient History Medical History No significant past medical history (spontaneous vaginal delivery) (~10/09/17) Surgical History [place] teeth extracted Family History Father No problems noted. Mother No problems noted. Grandfather No problems noted. Grandmother Liver disease Grandfather Hypertension Diabetes mellitus Grandmother No problems noted. Brother No problems noted. Sister No problems noted. 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 ) current occupational exposures/hazards: Yes special kaitlin needs: No Smoking Status: Never smoker second hand exposure: No alcohol intake: never substance use type: does not use Smoking Status: Never smoker alcohol intake frequency: other Substance Use Type: does not use Exam Initial Vital Signs Initial Vital Signs: Vital Signs Temperature 98.9 F 10/02/22 16:05 Pulse Rate 90 10/02/22 16:05 Respiratory Rate 17 10/02/22 16:05 Blood Pressure 122/78 10/02/22 16:05 Pulse Oximetry 100 10/02/22 16:05 Oxygen Delivery Method Room Air 10/02/22 16:05 GENERAL: Alert pleasant well-appearing 32-year-old female CARDIOVASCULAR: peripheral pulses in tact, cap refill <2 sec RESPIRATORY: No respiratory distress, speaks in full sentences without difficulty EXTREMITIES: Normal range of motion, no clubbing or edema. Neurovascularly intact NEUROLOGICAL: Cranial nerves II through XII grossly intact. Normal gait and speech. SKIN: Scratch noted on left side of chin no laceration no contusions no edema or erythema Course Vital Signs Vital signs: Vital Signs - 8 hr 10/02/22 22:28 Pulse Rate 82 Blood Pressure 116/73 Pulse Oximetry 100 Oxygen Delivery Method Room Air MDM - Psych MDM Narrative Medical decision making narrative: At this time patient is not suicidal. Self-harm risk is extremely low. She feels comfortable going home feels comfortable taking her home. She can contract for safety at this time no need for involuntary placement. Discharge Plan Departure Patient Disposition: Home Clinical Impression: Depression Instructions: Depression Activity Restrictions/Additional Instructions: *You have been diagnosed with depression *What to do: If you are feeling suicidal or having suicidal thoughts: Call: Suicide Hotline: 833 Visit: www.iamhurting.org Text: 267577 *Continue to take medications as directed *Follow up with your primary care provider in 2-3 days or call [phone] *Return to ER if you should have increasing thoughts of self-harm, homicidal thoughts or any new, worsening or concerning symptoms Prescriptions: No Action (DME) breast pump Device See Rx Instructions .ROUTE .MEDSUPPLY Qty: 1 0RF Rx Instructions: As directed norethindrone (contraceptive) [Ortho Micronor] 0.35 mg tablet 0.35 mg PO DAILY Qty: 28 11RF Rx Instructions: start day 1 of menstrual cycle prenat.vits,amy,bug-qqjq-imwqa Tablet 1 tab PO DAILY acetaminophen 325 mg Tablet 650 mg PO Q6HR PRN (Reason: Pain, Mild (1-3)) Qty: 30 0RF docusate sodium 100 mg Capsule 100 mg PO DAILY Qty: 30 0RF ibuprofen 600 mg Tablet 600 mg PO Q6HR PRN (Reason: Pain, Mild (1-3)) Qty: 30 0RF Referrals: Lilia Cohen MD [Primary Care Provider] - Stand Alone Forms: Patient Portal/API
[2022-10-02 22:28] VITALS: BP 116/73; PULSE 82; O2SAT 100
== END 2022-10-02 22:40 | disposition home or self-care (01) ==
PROVIDERS: Emergency Provider Emergency Medicine; PCP Family Medicine
DX: F32.9 Major depressive disorder, single episode, unspecified (principal)
CPT/HCPCS: 99284

== ENCOUNTER → 2022-10-05 15:32 | Outpatient (CLI) | payer OTHER, SELFPAY ==
--- NOTE | 2022-10-05 15:40 | DI.RAD.S_ITS ---
PROCEDURE: XR KNEE LT 3V INDICATIONS: KNEE PAIN TECHNIQUE: 3 views of the knee were acquired. COMPARISON: None. FINDINGS: Bones: No fractures or dislocations. No suspicious bony lesions. Soft tissues: No joint effusion. No suspicious soft tissue calcifications. IMPRESSION: No acute osseous abnormality. If symptoms persist, follow-up radiographs and/or CT or MRI may be helpful for further evaluation. Dictated by: Dell Johnson M.D. on 10/05/2022 at 17:33 Approved by: Dell Johnson M.D. on 10/05/2022 at 17:34
[2022-10-05 18:00] LABS: Thyroid Stimulating Hormone < 0.015 uIU/mL (0.47-4.68)
[2022-10-06 14:01] LABS: Free T4, Direct Thyroxine 3.89 ng/dL (0.78-2.19)
== END ==
PROVIDERS: PCP Family Medicine; Referring Provider Internal Medicine Endocrinology, Diabetes & Metabolism; Visit Provider Internal Medicine Endocrinology, Diabetes & Metabolism
DX: E05.90 Thyrotoxicosis, unspecified without thyrotoxic crisis or storm; M25.562 Pain in left knee
CPT/HCPCS: 36415; 73562; 84439; 84443; 84481

== ENCOUNTER → 2023-08-24 15:21 | Outpatient (CLI) | payer OTHER, SELFPAY ==
--- NOTE | 2023-08-24 | DI.US.S_ITS ---
PROCEDURE: US ABDOMEN LIMITED INDICATIONS: ELEVATED ALK PHOS TECHNIQUE: Real-time scanning was performed of the abdominal and retroperitoneal organs, with image documentation. COMPARISON: None. FINDINGS: Liver: Liver is normal in size and homogeneous in echotexture. Gallbladder: No gallstones. Incidental note made of 2.5 mm gallbladder polyp. No wall thickening. No pericholecystic edema. Negative sonographic Aguirre's sign. Biliary ducts: Intrahepatic bile ducts are non-dilated. Extrahepatic bile duct caliber measures 2.6 mm. Normal is 6-7 mm or less in diameter, or 10 mm or less post-cholecystectomy. Pancreas: Visualized portions of the pancreas are sonographically normal. Miscellaneous: No free abdominal fluid. IMPRESSION: Unremarkable right upper quadrant ultrasound. No evidence of diffuse hepatic steatosis. No gallstone disease noted. Dictated by: Pedro Luis Burden M.D. on 08/24/2023 at 21:46 Approved by: Pedro Luis Burden M.D. on 08/24/2023 at 21:48
== END ==
LOC: US 15:23
DX: R53.83 Other fatigue (principal)
CPT/HCPCS: 76705

== ENCOUNTER 2023-10-07 11:27 | Emergency (ER) | payer OTHER, SELFPAY ==
[2023-10-07 11:41] VITALS: BP 118/83; PULSE 81; RESP 18; TEMP 37.1; O2SAT 100; BMI 23.3
--- NOTE | 2023-10-07 11:54 | ED.SKABFB ---
HPI - Skin/Abscess/Foreign Bdy <Parth Laurent PA-C - Last Filed: 10/07/23 13:09> General Chief complaint: Skin/Abscess/Foreign Body Stated complaint: shingles/ rash Time Seen by Provider: 10/07/23 11:54 Source: patient Mode of arrival: Ambulatory Limitations: no limitations History of Present Illness HPI narrative: This is a 33-year-old female presents to the emergency department due to a rash of the right side of her torso onset 3 days ago. She states that for the rest develop she began feeling some tingling pain. She was now noticing red lesions to her abdomen in the right side which are itchy. Denies any fevers, nausea, vomiting, or any other concerning signs or symptoms. Related Data Home Medications Medication Instructions Recorded Confirmed prenat.vits,amy,[id number] 1 tab PO DAILY 12/11/20 11/16/22 Previous Rx's Medication Instructions Recorded breast pump #1 ea 05/09/21 acetaminophen 325 mg tablet 650 mg (2 x 325 mg) PO Q6HR PRN 07/31/21 Pain, Mild (1-3) #30 tabs ibuprofen 600 mg tablet 600 mg PO Q6HR PRN Pain, Mild 07/31/21 (1-3) #30 tabs norethindrone (contraceptive) 0.35 0.35 mg PO DAILY #28 tabs 09/22/21 mg tablet (Ortho Micronor) valacyclovir 1 gram tablet 1,000 mg PO TID #21 tabs 10/07/23 Allergies Allergy/AdvReac Type Severity Reaction Status Date / Time No Known Drug Allergies Allergy Verified 11/16/22 10:37 Review of Systems <Parth Laurent PA-C - Last Filed: 10/07/23 13:09> Review of Systems Narrative: GENERAL: Denies chills, fatigue, malaise, fever, sweats. HEENT: Denies sinus pain, ear pain, sore throat, difficulty swallowing, dizziness. RESPIRATORY: Denies dyspnea, cough, wheezing, hemoptysis, sputum. CARDIOVASCULAR: Denies chest pain, palpitations, orthopnea, edema, GASTROINTESTINAL: Denies nausea, vomiting, abdominal pain, diarrhea, constipation, melena. : Denies dysuria, frequency, incontinence, hematuria, urinary retention. MUSCULOSKELETAL: denies weakness, joint pain, or bony pain SKIN: Rash to right side of abdomen NEUROLOGIC: Denies weakness, headache, numbness, change in speech, confusion, seizures, incoordination. PSYCHIATRIC: No concerning psychosocial issues. 12 point review of systems is negative except for those stated above Patient History <Parth Laurent PA-C - Last Filed: 10/07/23 13:09> Medical History No significant past medical history (spontaneous vaginal delivery) (~10/09/17) Surgical History [place] teeth extracted Family History Father No problems noted. Mother No problems noted. Grandfather No problems noted. Grandmother Liver disease Grandfather Hypertension Diabetes mellitus Grandmother No problems noted. Brother No problems noted. Sister No problems noted. 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 HEAD: Atraumatic. Normocephalic. EYES: Pupils equal round and reactive. Extraocular motions intact. No scleral icterus. No injection or drainage. ENT: Nose without bleeding, purulent drainage. Throat without erythema, tonsillar hypertrophy or exudate. Airway patent. NECK: Trachea midline. Non tender EXTREMITIES: No edema or joint tenderness. NEURO: AOx3. SKIN: Erythematous rash of the right side of the abdomen. No open vesicles or blistering. Initial Vital Signs Initial Vital Signs: Vital Signs Temperature 98.8 F 05/02/24 11:41 Pulse Rate 81 10/07/23 11:41 Respiratory Rate 18 10/07/23 11:41 Blood Pressure 118/83 10/07/23 11:41 Pulse Oximetry 100 10/07/23 11:41 Oxygen Delivery Method Room Air 10/07/23 11:41 <Madelaine Pryor DO - Last Filed: 10/08/23 10:38> Initial Vital Signs Initial Vital Signs: Vital Signs Temperature 98.8 F 10/07/23 11:41 Pulse Rate 81 10/07/23 11:41 Respiratory Rate 18 10/07/23 11:41 Blood Pressure 118/83 10/07/23 11:41 Pulse Oximetry 100 10/07/23 11:41 Oxygen Delivery Method Room Air 10/07/23 11:41 Course <Parth Laurent PA-C - Last Filed: 10/07/23 13:09> Vital Signs Vital signs: Vital Signs - 8 hr 10/07/23 11:41 Temperature 98.8 F Pulse Rate 81 Respiratory Rate 18 Blood Pressure 118/83 Pulse Oximetry 100 Oxygen Delivery Method Room Air <Madelaine Pryor DO - Last Filed: 10/08/23 10:38> Vital Signs Vital signs: Vital Signs - 8 hr 10/07/23 11:41 Temperature 98.8 F Pulse Rate 81 Respiratory Rate 18 Blood Pressure 118/83 Pulse Oximetry 100 Oxygen Delivery Method Room Air MDM - Skin/Abscess/Foreign Bdy <Parth Laurent PA-C - Last Filed: 10/07/23 13:09> MDM Narrative Medical decision making narrative: ED course: This is a 33-year-old female presenting to the emergency department due to suspected shingles infection. No significant open lesions inpatient did have preceding pain will treat empirically. Valacyclovir will be prescribed. CC: Rash Complicating co-morbidities: None Data collected from: Previous notes Medical records reviewed: Patient was last seen about a year ago due to depression. History of hypothyroidism. No other medical history. Eventually discharged. Differential considered, but not limited to: Shingles, poison oak, eczema Exam documented above, pertinent findings include: Erythematous rash to the right side of the body, does not cross midline Lab Test results independently reviewed as above. Pertinent findings: None obtained Imaging studies independently reviewed: None obtained Scores Used: None MIPS Elements: None Consultations: None Treatments: None Re-evaluations: None Discussion: Discussed plan with the patient was comfortable with the plan Diagnosis: Shingles Disposition: see below, along with detailed discharge instructions that have been reviewed with patient as well as indications for ED re-evaluation and additional outpatient follow up Discharge Plan Departure Patient Disposition: Home Clinical Impression: Shingles Activity Restrictions/Additional Instructions: Thank you for coming to the [facility] Emergency Department today. Please take the oral medications prescribed. You may take Benadryl as needed for the itching as well as ibuprofen and Tylenol as needed for the pain. Please return to the emergency department if you develop any fevers, the rash begins to cross the midline or you develop any lesions affecting your face or eyes or any other concerning signs or symptoms. I hope you feel better soon. Please follow up with your primary care provider within a week if your symptoms continue. If you do not have a primary care provider please contact the [facility] Resource line at [phone]. They will ask some questions about your medical history and help you get set up with a provider in the community. Prescriptions: New valacyclovir 1 gram tablet 1,000 mg PO TID Qty: 21 0RF No Action (DME) breast pump Device See Rx Instructions .ROUTE .MEDSUPPLY Qty: 1 0RF Rx Instructions: As directed norethindrone (contraceptive) [Ortho Micronor] 0.35 mg tablet 0.35 mg PO DAILY Qty: 28 11RF Rx Instructions: start day 1 of menstrual cycle prenat.vits,amy,[id number] Tablet 1 tab PO DAILY acetaminophen 325 mg Tablet 650 mg PO Q6HR PRN (Reason: Pain, Mild (1-3)) Qty: 30 0RF ibuprofen 600 mg Tablet 600 mg PO Q6HR PRN (Reason: Pain, Mild (1-3)) Qty: 30 0RF Referrals: ProviderTwan [Primary Care Provider] - Stand Alone Forms: Patient Portal/API, Work Release Note ED Sign-out <Madelaine Pryor DO - Last Filed: 10/08/23 10:38> Cosign ED Attending Dalila Attestation: I was immediately available in the department for consultation.
[2023-10-07 13:02] VITALS: BP 110/74; PULSE 83; RESP 13; TEMP 37.2; O2SAT 99
== END 2023-10-07 13:18 | disposition home or self-care (01) ==
PROVIDERS: Emergency Provider Physician Assistant Medical
DX: B02.9 Zoster without complications (principal)

== ENCOUNTER 2023-10-07 21:41 | Emergency (ER) | payer OTHER, SELFPAY ==
[2023-10-07 21:53] VITALS: BP 113/68; PULSE 89; RESP 18; TEMP 36.5; O2SAT 98; BMI 22.4
--- NOTE | 2023-10-08 00:10 | ED_ITS ---
HPI - Extremity Problem General Chief complaint: Extremity Problem,Nontraumatic Stated complaint: bilateral leg issues Time Seen by Provider: 10/07/23 23:51 Source: patient Mode of arrival: Ambulatory History of Present Illness HPI Narrative: 33-year-old female presents for bilateral lower extremity pain from the knees down. Patient is seen earlier in the day for shingles on her abdomen. She was discharged home, but while shopping in the store she noticed that there was pain from the knees down and she had difficulty walking due to the pain. Pain is worse in bilateral calves and she states that at the time there was bilateral ankle swelling, however that has since resolved. No medications taken prior to arrival. Related Data Home Medications Medication Instructions Recorded Confirmed prenat.vits,amy,[id number] 1 tab PO DAILY 12/11/20 11/16/22 Previous Rx's Medication Instructions Recorded breast pump #1 ea 05/09/21 acetaminophen 325 mg tablet 650 mg (2 x 325 mg) PO Q6HR PRN 07/31/21 Pain, Mild (1-3) #30 tabs ibuprofen 600 mg tablet 600 mg PO Q6HR PRN Pain, Mild 07/31/21 (1-3) #30 tabs norethindrone (contraceptive) 0.35 0.35 mg PO DAILY #28 tabs 09/22/21 mg tablet (Ortho Micronor) valacyclovir 1 gram tablet 1,000 mg PO TID #21 tabs 10/07/23 Allergies Allergy/AdvReac Type Severity Reaction Status Date / Time No Known Drug Allergies Allergy Verified 11/16/22 10:37 Review of Systems Review of Systems Narrative: See HPI Patient History Medical History (spontaneous vaginal delivery) (~10/09/17) No significant past medical history Surgical History [place] teeth extracted Family History Father No problems noted. Mother No problems noted. Grandfather No problems noted. Grandmother Liver disease Grandfather Hypertension Diabetes mellitus Grandmother No problems noted. Brother No problems noted. Sister No problems noted. 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 ) current occupational exposures/hazards: Yes special kaitlin needs: No Smoking Status: Never smoker second hand exposure: No alcohol intake: never substance use type: does not use Smoking Status: Never smoker alcohol intake frequency: other Substance Use Type: does not use Exam Initial Vital Signs Initial Vital Signs: Vital Signs Temperature 97.7 F 10/07/23 21:53 Pulse Rate 89 10/07/23 21:53 Respiratory Rate 18 10/07/23 21:53 Blood Pressure 113/68 10/07/23 21:53 Pulse Oximetry 98 10/07/23 21:53 Oxygen Delivery Method Room Air 10/07/23 21:53 Const: Awake, alert, no acute distress, nontoxic appearing MSK: Atraumatic, full range of motion, pulses equal, no edema Skin: Warm, Dry, intact, no rashes Neuro: AO x3, CN II-XII grossly intact, moves all extremities Course Orders Ordered: Discontinued Medications Sodium Chloride (Normal Saline 0.9%) 1,000 mls @ 1,000 mls/hr IV BOLUS ONE Stop: 10/08/23 01:09 Last Infusion: 10/08/23 02:00 Dose: Infused Documented By: Admin: 10/08/23 00:54 Dose: 1,000 mls/hr Documented By: BRANDIN Ketorolac Tromethamine (Ketorolac 30 Mg/Ml Vial) 15 mg IV NOW ONE Stop: 10/08/23 00:11 Last Admin: 10/08/23 00:52 Dose: 15 mg Documented By: BRANDIN Vital Signs Vital signs: Vital Signs - 8 hr 10/07/23 21:53 Temperature 97.7 F Pulse Rate 89 Respiratory Rate 18 Blood Pressure 113/68 Pulse Oximetry 98 Oxygen Delivery Method Room Air MDM - Extremity (Nontraumatic) Differential Diagnosis Differential diagnosis: Likely cellulitis, lower extremity edema and other Lab Data 10/08/23 00:59 10/08/23 00:59 Labs: Lab Results 05/03/24 Range/Units 00:59 WBC 6.3 (4.5-11.0) X10^3/uL RBC 3.93 L (4.0-5.2) X10^6/uL Hgb 12.2 (12.0-16.0) g/dL Hct 36.3 (36-46) % MCV 92.2 (80-100) fL MCH 31.0 (26-34) PG MCHC 33.6 (30-36) % RDW 14.4 (11.6-14.8) % Plt Count 182 (150-400) X10^3/uL Neut % (Auto) 35.0 L (50-75) % Lymph % (Auto) 50.1 H (25-40) % Waldo % (Auto) 11.8 (3-14) % Eos % (Auto) 2.3 (2-4) % Baso % (Auto) 0.8 (0-2) % Neut # (Auto) 2200 (5497-3851) /uL Lymph # (Auto) 3200 (9039-9850) /uL Waldo # (Auto) 700 (0-900) /uL Eos # (Auto) 100 (0-450) /uL Baso # (Auto) 100 (0-100) /uL Sodium 140 (137-145) mmol/L Potassium 3.5 (3.4-5.1) mmol/L Chloride 109 H (98-107) mmol/L Carbon Dioxide 26 (22-32) mmol/L BUN 18 H (7-17) mg/dL Creatinine 0.56 (0.52-1.04) mg/dL Estimated GFR > 60 (>60) mL/min BUN/Creatinine Ratio 32.1 H (6-22) Glucose 92 (70-100) mg/dL Calcium 8.9 (8.4-10.2) mg/dL Total Creatine Kinase 242 H (30-135) U/L [facility] Narrative Medical decision making narrative: Bilateral leg pain from knees down. Physical exam is significant for generalized muscular tenderness of the calves bilaterally that is equal. There is no swelling, no edema, patient was neurologically intact. Laboratory work shows no acute abnormalities, CK is only mildly elevated but not enough to qualify as rhabdo. Patient's description of pain as well as presentation of symptoms is inconsistent with DVT. Patient advised to drink plenty of fluids, take Tylenol and Motrin as needed for pain, and to follow up with the primary care physician. Discharge Plan Departure Patient Disposition: Home Clinical Impression: Bilateral leg pain Instructions: DI for Leg Pain Activity Restrictions/Additional Instructions: Your laboratory work today was normal. I do not know the cause of your leg pain but your electrolytes are normal and it was not appear that you have muscle breakdown at this time. Follow up with your primary care physician. He may take Tylenol and ibuprofen as needed for pain. Make sure to drink plenty of fluids and you may elevate your legs when at rest to see if this helps your symptoms. Prescriptions: No Action (DME) breast pump Device See Rx Instructions .ROUTE .MEDSUPPLY Qty: 1 0RF Rx Instructions: As directed norethindrone (contraceptive) [Ortho Micronor] 0.35 mg tablet 0.35 mg PO DAILY Qty: 28 11RF Rx Instructions: start day 1 of menstrual cycle prenat.vits,amy,[id number] Tablet 1 tab PO DAILY acetaminophen 325 mg Tablet 650 mg PO Q6HR PRN (Reason: Pain, Mild (1-3)) Qty: 30 0RF ibuprofen 600 mg Tablet 600 mg PO Q6HR PRN (Reason: Pain, Mild (1-3)) Qty: 30 0RF valacyclovir 1 gram tablet 1,000 mg PO TID Qty: 21 0RF Referrals: ProviderTwan [Primary Care Provider] - Stand Alone Forms: Patient Portal/API
[2023-10-08] MEDS: KETOROLAC 30 MG/ML VIAL 15 MG IV (00:52)
[2023-10-08] MEDS: SODIUM CHLORIDE 0.9% 1,000 ML 1000 ML IV (00:54)
[2023-10-08 01:05] LABS: Add Manual Diff / Slide Review NO; Basophils Absolute Auto 100 /uL (0-100); Basophils Percent Auto 0.8 % (0-2); Eosinophils Absolute Auto 100 /uL (0-450); Eosinophils Percent Auto 2.3 % (2-4); Hematocrit 36.3 % (36-46); Hemoglobin 12.2 g/dL (12.0-16.0); Lymphocytes Absolute Auto 3200 /uL (1100-4500); Lymphocytes Percent Auto 50.1 % (25-40); Mean Corpuscular HGB Conc 33.6 % (30-36); Mean Corpuscular Volume 92.2 fL (80-100); Monocytes Absolute Auto 700 /uL (0-900); Monocytes Percent Auto 11.8 % (3-14); Neutrophils Absolute Auto 2200 /uL (1500-7000); Platelet Count 182 X10^3/uL (150-400); Red Blood Cell Count 3.93 X10^6/uL (4.0-5.2); Red Cell Distribution Width 14.4 % (11.6-14.8); White Blood Cell Count 6.3 X10^3/uL (4.5-11.0)
[2023-10-08 01:16] LABS: BUN Creatinine Ratio 32.1 (6-22); Blood Urea Nitrogen 18 mg/dL (7-17); Calcium 8.9 mg/dL (8.4-10.2); Carbon Dioxide 26 mmol/L (22-32); Chloride 109 mmol/L (98-107); Creatine Kinase 242 U/L (30-135); Estimated Glomerular Filt Rate > 60 mL/min (>60); Glucose 92 mg/dL (70-100); HEMOLYSIS < 15 (0-50); Potassium 3.5 mmol/L (3.4-5.1); Sodium 140 mmol/L (137-145)
[2023-10-08 03:12] VITALS: BP 115/60; PULSE 90; RESP 18
== END 2023-10-08 02:00 | disposition home or self-care (01) ==
PROVIDERS: Emergency Provider Emergency Medicine
DX: M79.662 Pain in left lower leg (principal); M79.661 Pain in right lower leg
CPT/HCPCS: 36415; 80048; 82550; 85025; 96374; 99284; J1885